=== PATIENT | female | born 1980 | race Native Hawaiian/Other Pacific Islander ===

== ENCOUNTER 2022-03-25 07:22 | Day surgery (SDC) | payer OTHER ==
--- NOTE | 2022-03-17 13:28 | HP ---
DATE OF SURGERY: 03/25/2022 HISTORY OF PRESENT ILLNESS: The patient is a 41-year-old female who presents with cholelithiasis. The patient is reporting cramping right upper quadrant and pressure. She has been uncomfortable. She is not eating a lot. She has been noted to have gallstones on work up. She has tried a low fat diet. She has had nausea, vomiting and diarrhea with this. It started about one year ago. PAST MEDICAL HISTORY: Gastroesophageal reflux disease, depression. PAST SURGICAL HISTORY: None. ALLERGIES: NKDA. MEDICATIONS: Omeprazole, cyclobenzaprine, sertraline, fluticasone. FAMILY HISTORY: Thyroid, stroke. SOCIAL HISTORY: None. REVIEW OF SYSTEMS: CONSTITUTIONAL: Denies fever or chills. CHEST: Denies shortness of breath. CVS: Denies chest pain. ABDOMEN: Reports right upper quadrant pain. PHYSICAL EXAMINATION: GENERAL: No acute distress. CHEST: Nonlabored. No shortness of breath. CVS: Regular rate and rhythm. ABDOMEN: Soft. IMPRESSION: Symptomatic cholelithiasis. PLAN: Laparoscopic cholecystectomy with Dr. Zoltan Szymanski. As dictated by Barbara Velázquez NP.
[~2022-03-25 07:22] MED LIST: Lactated Ringers 1,000 ML IV ONE; Sensorcaine 0.25% 10 ML ONE
[2022-03-25] MEDS ORDERED: Lactated Ringers 1,000 ML IV SCH (08:00)
[2022-03-25] MEDS ORDERED: MEFOXIN 2 GM PREMIX** 2 GM/50 ML ML IV SCH (08:00)
[2022-03-25 08:45] LABS: ANION GAP 10.2 MEQ/L (5-15); BLOOD UREA NITROGEN 10 mg/dL (7-17); CHLORIDE 110 mmol/L (98-107); Calcium 8.4 mg/dL (8.4-10.2); Carbon Dioxide 22 mmol/L (22-30); Creatinine 1 0.59 mg/dL (0.52-1.04); EST GLOMERULAR FILTRATION RATE > 60.0 ML/MIN; Glucose 97 mg/dL (74-106); Potassium 3.7 mmol/L (3.5-5.1); SODIUM 138 mmol/L (137-145)
[2022-03-25] MEDS ORDERED: BRIDION 200MG/2ML IV ONE ×2 (09:57→11:39)
[2022-03-25] MEDS ORDERED: Zemuron 100 MG/10 ML ONE ×2 (10:06→11:23)
[2022-03-25] MEDS ORDERED: Xylocaine-Mpf 2% 5 Ml Vial ONE (10:06)
[2022-03-25] MEDS ORDERED: Decadron 4 MG INJ ONE (10:06)
[2022-03-25] MEDS ORDERED: SUBLIMAZE 100 MCG/2 ML ONE ×2 (10:06→11:25)
[2022-03-25] MEDS ORDERED: TORAdol 30 mg Injection ONE (10:06)
[2022-03-25] MEDS ORDERED: Zofran 4 MG/2 ML VIAL ONE (10:06)
[2022-03-25] MEDS ORDERED: DIPRIVAN 200 MG/20 ML IV ONE (10:06)
[2022-03-25] MEDS ORDERED: Versed 2 MG/2 ML Injection ONE (10:32)
[2022-03-25] MEDS ORDERED: OFIRMEV 100 ML IV ONE (11:02)
[2022-03-25] MEDS ORDERED: Magnesium Sulfate 1 GM/2 ML VIAL ONE (11:02)
[2022-03-25] MEDS ORDERED: Ketamine HCl 50 MG/ML ONE (11:09)
[2022-03-25] MEDS ORDERED: NORCO 5/325 MG PO PRN (12:57)
[2022-03-25 13:21] VITALS: BP 107/71; PULSE 63; O2SAT 98
--- NOTE | 2022-03-29 13:04 | OP ---
SURGERY DATE/TIME: 03/25/2022 1053 PREOPERATIVE DIAGNOSIS: Symptomatic cholelithiasis. POSTOPERATIVE DIAGNOSIS: Symptomatic cholelithiasis. PROCEDURE: Laparoscopic cholecystectomy. SURGEON: Dr. Zoltan Szymanski. ANESTHESIA: General endotracheal tube. COMPLICATIONS: None. CONDITION: Stable. DESCRIPTION OF PROCEDURE AND FINDINGS: Taken to surgery. General anesthetic, routine prep and drape. Time out performed. Veress needle inserted. Opening pressure of 1, insufflating pressure 14. Four - 5's. Good visualization. Cystic duct defined. Cystic artery defined. Both structures triply clipped and transected. Clips noted across and well approximated. Gallbladder rolled out of gallbladder fossa. The gallbladder delivered through epigastric port with minimal widening. No hole closure device was needed. Field was dry. CO2 was exsufflated. Skin closed with 4-0 Vicryl and Steri-Strips. The patient tolerated the procedure satisfactorily.
== END 2022-03-25 13:38 | disposition home or self-care (01) ==
LOC: SDC 07:22
PROVIDERS: ATTEND Surgery
DX: K80.20 Calculus of gallbladder without cholecystitis without obstruction (principal)
CPT/HCPCS: 36415; 80048; 84703; J0694; J1100; J1885; J2250; J2405; J2704; J3010; J3475; A9270-GY